=== PATIENT | female | born 1955 | race Caucasian/White ===

== ENCOUNTER 2018-01-20 05:31 | Inpatient (IN) ==
[2018-01-20 06:34] LABS: Baso % (Auto) 0.2 % (0.0-2.0); Eos # (Auto) 0.1 th/mm3 (0.0-0.4); Eos % (Auto) 1.9 % (0.0-4.0); Hematocrit 39.3 % (35.0-46.0); Hemoglobin 13.5 gm/dL (11.6-15.3); Lymph # (Auto) 1.2 th/mm3 (1.0-4.8); Lymph % (Auto) 19.2 % (9.0-44.0); Mean Corpuscular HGB Conc 34.3 % (32.0-36.0); Mean Corpuscular Hemoglobin 31.7 pg (27.0-34.0); Mean Corpuscular Volume 92.3 fL (80.0-100.0); Mean Platelet Volume 8.9 fL (7.0-11.0); Mono # (Auto) 0.4 th/mm3 (0.0-0.9); Mono % (Auto) 6.5 % (0.0-8.0); Neut # (Auto) 4.7 th/mm3 (1.8-7.7); Neut % (Auto) 72.2 % (16.0-70.0); Platelet Count 199 th/mm3 (150-450); Red Blood Count 4.26 mil/mm3 (4.00-5.30); Red Cell Distribution Width 12.5 % (11.6-17.2); White Blood Count 6.5 th/mm3 (4.0-11.0)
--- NOTE | 2018-01-20 06:35 | ED ---
HPI General Chief Complaint: Abdominal Pain Stated Complaint: abd pain Time Seen by Provider: 01/20/18 05:46 Source: patient Mode of arrival: ambulatory Limitations: no limitations History of Present Illness HPI narrative: This 62-year-old woman who presents to the emergency department complaining of ongoing left-sided abdominal pain. Pain is in the upper abdomen , but more on the left side. It has been ongoing for about 4 days or so. She was seen yesterday for the same. She has a history of reported pancreatic cysts. The significance of these is unclear. She had CT imaging yesterday showed no other acute abnormality, states since discharge she has had persistent severe pain that is been uncontrolled despite the tramadol that she was prescribed, does return to the emergency department. She has had nausea. Related Data Home Medications Medication Instructions Recorded Confirmed amlodipine 10 mg PO DAILY 01/19/18 01/20/18 atorvastatin 20 mg PO QPM 01/19/18 01/20/18 clonazepam 0.5 mg PO TID 01/19/18 01/20/18 escitalopram oxalate 20 mg PO DAILY 01/19/18 01/20/18 lisinopril 40 mg PO DAILY 01/19/18 01/20/18 Previous Rx's Medication Instructions Recorded pantoprazole [Protonix] 40 mg PO DAILY #30 tab 01/19/18 tramadol 50 mg PO Q6H PRN #12 tab 01/19/18 Allergies Allergy/AdvReac Type Severity Reaction Status Date / Time adhesive Allergy Severe REDNESS Verified 01/19/18 14:17 hydrocodone Allergy Hallucinati Verified 01/19/18 14:17 ons naproxen [From Aleve] Allergy Anemia Verified 01/19/18 14:17 Review of Systems ROS: all other systems reviewed are negative [facility] Medical History Medical History Anxiety (Acute) Depression (Acute) FH: cholecystectomy (Acute) Hypercholesteremia (Acute) Hypertension (Acute) Surgical History Surgical History H/O hysterectomy with unilateral oophorectomy (Acute) H/O oophorectomy (Acute) History of back surgery (Acute) S/P appendectomy (Acute) Social History Social History Substance History: No History of Abuse Second Hand Smoke Exposure: No Smoking Status: Never smoker How Often Do You Have a Drink Containing Alcohol: Never Recent Travel in [facility] within the Last 8 Weeks: No Recent Out of Country Travel within the Last 8 Weeks: No Immunization History Tetanus Immunization: Unsure Exam Narrative Exam Narrative: GENERAL: 62-year-old woman, moaning, clutching her abdomen, nontoxic. SKIN: Focused skin assessment warm/dry. HEAD: Atraumatic. Normocephalic. EYES: Pupils equal and round. No scleral icterus. No injection or drainage. ENT: No nasal bleeding or discharge. Mucous membranes pink and moist. NECK: Trachea midline. No JVD. CARDIOVASCULAR: Regular rate and rhythm. No murmur appreciated. RESPIRATORY: No accessory muscle use. Clear to auscultation. Breath sounds equal bilaterally. GASTROINTESTINAL: Abdomen soft, mild left-sided tenderness. MUSCULOSKELETAL: No obvious deformities. No clubbing. No cyanosis. No edema. NEUROLOGICAL: Awake and alert. No obvious cranial nerve deficits. Motor grossly within normal limits. Normal speech. PSYCHIATRIC: Appropriate mood and affect; insight and judgment normal. Course Initial Documented Vital Signs Temperature 97.8 F 01/20/18 05:32 Pulse Rate 93 H 01/20/18 05:32 Respiratory Rate 20 01/20/18 05:32 Blood Pressure 173/84 H 01/20/18 05:32 Pulse Oximetry 97 01/20/18 05:32 Last Documented Vital Signs Temperature 97.8 F 01/20/18 05:32 Pulse Rate 72 01/20/18 05:50 Respiratory Rate 16 01/20/18 05:50 Blood Pressure 173/84 H 01/20/18 05:32 Pulse Oximetry 100 01/20/18 05:50 Medical Decision Making [facility] Narrative Medical decision making narrative: 62-year-old woman, known necrotic cyst, here with ongoing abdominal pain, thought to be related to gastritis and chronic NSAID use, worsening pain now reviewed imaging from yesterday, reviewed labs from yesterday, will give oral pain medicines, recheck blood work, reassess. Medical Screen Exam Complete: Yes Emergency Medical Condition: Yes Lab Data Result diagrams: 01/20/18 06:15 01/20/18 06:15 Lab Results 01/20/18 01/20/18 Range/Units 06:15 06:15 WBC 6.5 (4.0-11.0) th/mm3 RBC 4.26 (4.00-5.30) mil/mm3 Hgb 13.5 (11.6-15.3) gm/dL Hct 39.3 (35.0-46.0) % MCV 92.3 (80.0-100.0) fL MCH 31.7 (27.0-34.0) pg MCHC 34.3 (32.0-36.0) % RDW 12.5 (11.6-17.2) % Plt Count 199 (150-450) th/mm3 MPV 8.9 (7.0-11.0) fL Neut % (Auto) 72.2 H (16.0-70.0) % Lymph % (Auto) 19.2 (9.0-44.0) % [place] % (Auto) 6.5 (0.0-8.0) % Eos % (Auto) 1.9 (0.0-4.0) % Baso % (Auto) 0.2 (0.0-2.0) % Neut # (Auto) 4.7 (1.8-7.7) th/mm3 Lymph # (Auto) 1.2 (1.0-4.8) th/mm3 [place] # (Auto) 0.4 (0.0-0.9) th/mm3 Eos # (Auto) 0.1 (0.0-0.4) th/mm3 Baso # (Auto) 0.0 (0.0-0.2) th/mm3 WBC Differential . Differential Comment Auto diff final Sodium 140 (136-145) meq/L Potassium 4.2 (3.5-5.1) meq/L Chloride 106 (98-107) meq/L Carbon Dioxide 26.2 (21.0-32.0) meq/L Anion Gap 8 (5-15) meq/L BUN 16 (7-18) mg/dL Creatinine 0.83 (0.50-1.00) mg/dL Estimated GFR 70 L (>89) mL/min Random Glucose 93 (74-106) mg/dL Calcium 8.9 (8.5-10.1) mg/dL Magnesium 2.2 (1.5-2.5) mg/dL Total Bilirubin 0.5 (0.2-1.0) mg/dL AST 111 H (15-37) U/L ALT 129 H (10-53) U/L Alkaline Phosphatase 172 H (45-117) U/L Total Protein 8.2 D (6.4-8.2) g/dL Albumin 4.1 (3.4-5.0) g/dL Lipase 51 L (73-393) U/L Discharge Plan Discharge Disposition Patient Disposition: Sign Out(ED Internal Use Only) Discharge Condition Condition: Stable Physicians Team ED Provider: David Long Primary Care Provider: Awa Reis Rxs /Orders / Referrals /Forms Prescriptions: No Action atorvastatin 20 mg Tablet 20 mg PO QPM RF: 0 clonazepam 0.5 mg Tablet 0.5 mg PO TID RF: 0 amlodipine 10 mg Tablet 10 mg PO DAILY RF: 0 lisinopril 40 mg Tablet 40 mg PO DAILY RF: 0 escitalopram oxalate 20 mg Tablet 20 mg PO DAILY RF: 0 tramadol 50 mg tablet 50 mg PO Q6H PRN (Reason: pain) Qty: 12 RF: 0 pantoprazole [Protonix] 40 mg tablet,delayed release (DR/EC) 40 mg PO DAILY Qty: 30 RF: 0 Status ED Status: With Doctor
[2018-01-20 07:05] LABS: Alanine Aminotransferase 129 U/L (10-53); Albumin 4.1 g/dL (3.4-5.0); Alkaline Phosphatase 172 U/L (45-117); Anion Gap 8 meq/L (5-15); Aspartate Aminotransferase 111 U/L (15-37); Blood Urea Nitrogen 16 mg/dL (7-18); Calcium 8.9 mg/dL (8.5-10.1); Carbon Dioxide 26.2 meq/L (21.0-32.0); Chloride 106 meq/L (98-107); Glomerular Filtration Rate 70 mL/min (>89); Glucose,Random 93 mg/dL (74-106); Lipase 51 U/L (73-393); Magnesium 2.2 mg/dL (1.5-2.5); Potassium 4.2 meq/L (3.5-5.1); Sodium 140 meq/L (136-145); Total Protein 8.2 g/dL (6.4-8.2)
[2018-01-20] MEDS ORDERED: HYDROmorphone PF Inj 2 MG/ML Vial IV.PUSH ONE (07:17)
[2018-01-20] MEDS ORDERED: Acetaminophen 325 MG Tablet PO PRN (08:29)
[2018-01-20] MEDS ORDERED: Lisinopril 20 MG Tablet PO ONE (08:30)
[2018-01-20] MEDS ORDERED: amLODIPine 10 MG Tablet PO ONE (08:30)
[2018-01-20] MEDS ORDERED: clonazePAM 0.5 MG Tablet PO ONE (08:30)
--- NOTE | 2018-01-20 09:26 | P.HPIM ---
History of Present Illness Primary Care Physician: Awa Reis MD History of Present Illness: Mrs. Aguayo is a 62 y/o female with HTN, Hyperlipidemia, panic seizures/pseudoseizures, and known pancreatic cysts. She presented initially to the ED at [facility] [place] with complaints of abdominal pain that began 2 days prior. This pain is located in the LUQ with radiation around the left ribs to the back. She initially had a few episodes of diarrhea but in the last two days has not moved her bowels. When the pain began she started taking Advil 3-4 tablets about twice per day over the last 2-3 days withtou relief of the pain. There were no reported fever or chills. In the ED on 01/19 her labs were essentially WNL. She had a CT Abd/pelvis with IV contrast which noted moderate size retrocardiac hiatal hernia, multiple cystic structures within the pancreas , s/p cholecystectomy, and mild hepatic steatosis. Pt was discharged to home with a prescription for Protonix and Tramadol. The pain reportedly worsened last night and the tramadol didn't help. She presented back to the ED at [facility] on 01/20/18 again with continued pain and nausea. Her repeat labs on 01/20 noted an elevation in her LFTs with AST 111, ALT 129, AlkPhos 172, and Total Bili remained WNL at 0.5. Pt was given Percocet 10/650 and then Dilaudid IV in the ED. Her pain is currently stable but her reports that after the IV Dilaudid she started having itching all over. Pt is somewhat somnolent at the time of examination in the ED but did provide some information intermittently. She is nauseated and dry heaving during the examination. She states that she has not been passing gas and no BM in the last few days. Pt has had multiple abdominal surgeries previously. Her last abdominal surgery was for right oophorectomy and cyst removal in 07/2017. Of note, the pt had a colonoscopy on 01/05/[address] Moralez which noted diverticulosis in the descending colon, a polyp in the descending colon, and hemorrhoids. She was scheduled for an EUS to further evaluate her known pancreatic cysts. She had a previous CT Abd/pelvis in 07/2017 which noted multiple cysts in the pancreas, which had increased in size slightly compared to previous CT scan in 2013 and felt to possibly be secondary to benign IPMN. Past Medical Hx: HTN Hyperlipidemia Generalized anxiety disorder Panic seizures/Pseudoseizures Depression DDD Hiatal hernia Pancreatic cysts ?IPMN Hx of endometriosis Hx of ovarian cysts Past Surgical Hx: Laparoscopic EDILIA/right salpingo-oophorectomy on 07/25/17 Sai fundoplication with crucoplasty and lap arabella on 11/03/2008 Lumbar spine surgery Hysterectomy Family Hx: Sister with hx of breast cancer Father with hx of dementia Mother with hx of CVA Social Hx: No reported alcohol, tobacco or illicit drug use Pt is and lives locally with her . Diagnosis (1) Abdominal pain: (2) Elevated LFTs: (3) HTN (hypertension): (4) History of pseudoseizure: Medications and Allergies Allergies Allergy/AdvReac Type Severity Reaction Status Date / Time adhesive Allergy Severe REDNESS Verified 01/19/18 14:17 hydrocodone Allergy Hallucinati Verified 01/19/18 14:17 ons naproxen [From Aleve] Allergy Anemia Verified 01/19/18 14:17 Home Medications Medication Instructions Recorded Confirmed Type amlodipine 10 mg PO DAILY 01/19/18 01/20/18 History atorvastatin 20 mg PO QPM 01/19/18 01/20/18 History clonazepam 0.5 mg PO TID 01/19/18 01/20/18 History escitalopram oxalate 20 mg PO DAILY 01/19/18 01/20/18 History lisinopril 40 mg PO DAILY 01/19/18 01/20/18 History Active Medications: Active Medications Acetaminophen (Tylenol) 650 mg PO Q4H PRN PRN Reason: Temp > 100.4 Al Hydroxide/Mg Hydroxide (Milk Of Taniya Sawant) 30 ml PO Q12H PRN PRN Reason: Mild Constipation Atorvastatin Calcium (Lipitor) 20 mg PO DAILY@1800 ARMAND Sodium Chloride (Ns Inj) 1,000 mls @ 100 mls/hr IV.CONT .Q10H ARMAND Ondansetron HCl (Zofran Inj) 4 mg IV.PUSH Q6H PRN PRN Reason: NAUSEA OR VOMITING Last Admin: 01/20/18 08:57 Dose: 4 mg Pantoprazole Sodium (Protonix Inj) 40 mg IV.PUSH Q12H ARMAND Senna/Docusate Sodium (Toña-Colace) 1 tab PO BID ARMAND Sodium Chloride (Ns Flush) 2 ml IV.FLUSH BID ARMAND Sodium Chloride (Ns Flush) 2 ml IV.FLUSH PRN PRN PRN Reason: FLUSH AFTER USING IV ACCESS Physical Exam Vital signs: Last Vital Signs Temp 97.8 F 01/20/18 05:32 Pulse 77 01/20/18 08:58 Resp 18 01/20/18 08:23 BP 200/80 H 01/20/18 08:58 Pulse Ox 99 01/20/18 08:58 Narrative: GENERAL: NAD, lethargic SKIN: Warm and dry. HEENT: Atraumatic. Normocephalic. Pupils equal and round. No scleral icterus. No injection or drainage. No nasal bleeding or discharge. Mucous membranes pink and moist. NECK: Trachea midline. No JVD. CARDIO: Regular rate and rhythm. RESP: No accessory muscle use. Clear to auscultation. Breath sounds equal bilaterally. ABD: Decreased bowel sounds, soft, non-tender, nondistended. EXT: Extremities without clubbing, cyanosis, or edema. No obvious deformities. NEURO: Moves all extremities, difficult to assess due to pts lethargy Results Labs CBC & Chem 7: 01/23/18 06:09 01/23/18 06:09 Caprini VTE Risk Assessment Caprini VTE Risk Assessment: Moderate/High Risk (score >= 2) Caprini Risk Assessment Model: Point Value = 1 Point Value = 2 Point Value = 3 Point Value = 5 Age 41-60 Minor surgery BMI > 25 kg/m2 Swollen legs Varicose veins or History of unexplained or recurrent spontaneous Oral contraceptives or hormone replacement Sepsis (< 1 month) Serious lung disease, including pneumonia (< 1 month) Abnormal pulmonary function Acute myocardial infarction Congestive heart failure (< 1 month) History of inflammatory bowel disease Medical patient at bed rest Age 61-74 Arthroscopic surgery Major open surgery (> 45 min) Laparoscopic surgery (> 45 min) Malignancy Confined to bed (> 72 hours) Immobilizing plaster cast Central venous access Age >= 75 History of VTE Family history of VTE Factor V Leiden Prothrombin [id number] Lupus anticoagulant Anticardiolipin antibodies Elevated serum homocysteine Heparin-induced thrombocytopenia Other congenital or acquired thrombophilia Stroke (< 1 month) Elective arthroplasty Hip, pelvis, or leg fracture Acute spinal cord injury (< 1 month) Prophylaxis Regimen: Total Risk Factor Score Risk Level Prophylaxis Regimen 0-1 Low Early ambulation 2 Moderate Order ONE of the following: *Sequential Compression Device (SCD) *Heparin 5000 units SQ BID 3-4 Higher Order ONE of the following medications: *Heparin 5000 units SQ TID *Enoxaparin/Lovenox 40 mg SQ daily (WT < 150 kg, CrCl > 30 mL/min) *Enoxaparin/Lovenox 30 mg SQ daily (WT < 150 kg, CrCl > 10-29 mL/min) *Enoxaparin/Lovenox 30 mg SQ BID (WT < 150 kg, CrCl > 30 mL/min) AND/OR *Sequential Compression Device (SCD) 5 or more Highest Order ONE of the following medications: *Heparin 5000 units SQ TID (Preferred with Epidurals) *Enoxaparin/Lovenox 40 mg SQ daily (WT < 150 kg, CrCl > 30 mL/min) *Enoxaparin/Lovenox 30 mg SQ daily (WT < 150 kg, CrCl > 10-29 mL/min) *Enoxaparin/Lovenox 30 mg SQ BID (WT < 150 kg, CrCl > 30 mL/min) AND *Sequential Compression Device (SCD) Assessment and Plan Assessment (1) Abdominal pain: Code(s): R10.9 - Unspecified abdominal pain Status: Acute (2) Elevated LFTs: Code(s): R94.5 - Abnormal results of liver function studies Status: Acute (3) HTN (hypertension): Code(s): I10 - Essential (primary) hypertension Status: Chronic (4) History of pseudoseizure: Code(s): Z86.69 - Personal history of other diseases of the nervous system and sense organs Status: Chronic Plan Abdominal pain Nausea/dry heaves Elevated LFTs - Pt is a 62 y/o female with HTN, Hyperlipidemia, panic seizures/pseudoseizures , and known pancreatic cysts. She presented initially to the ED at [facility] with complaints of abdominal pain that began 2 days prior. This pain is located in the LUQ with radiation around the left ribs to the back. She initially had a few episodes of diarrhea but in the last two days has not moved her bowels. When the pain began she started taking Advil 3-4 tablets every 3-4 hours. In the ED on 01/19 her labs were essentially WNL. She had a CT Abd/ pelvis with IV contrast which noted moderate size retrocardiac hiatal hernia, multiple cystic structures within the pancreas , s/p cholecystectomy, and mild hepatic steatosis. Pt was discharged to home with a prescription for Protonix and Tramadol. The pain reportedly worsened last night and the tramadol didn't help. She presented back to the ED at [facility] on 01/20/18 again with continued pain and nausea. - Her repeat labs on 01/20 noted an elevation in her LFTs with AST 111, ALT 129 , AlkPhos 172, and Total Bili remained WNL at 0.5. - Pt had a colonoscopy on 01/05/[address] Moralez which noted diverticulosis in the descending colon, a polyp in the descending colon, and hemorrhoids. She was scheduled for an EUS to further evaluate her known pancreatic cysts. She had a previous CT Abd/pelvis in 07/2017 which noted multiple cysts in the pancreas, which had increased in size slightly compared to previous CT scan in 2012 and felt to possibly be secondary to benign IPMN. - In the setting of her acutely elevated LFTs we will evaluate with MRCP - Consult GI - Keep pt NPO for now - IVF - Pain control with PO Percocet for now as pt seems to have had a reaction to the IV Dilaudid and previously given IV Morphine which she states did not help. - Zofran PRN - She states that she has not been passing gas and no BM in the last few days. Pt with a lot of gas noted in the LUQ on c programmer film from CT scan - Give Simethicone 125mg TID and Reglan - Start Protonix 40mg IV BID - Monitor clinical status - Repeat labs in AM - KUB in AM - Supportive care - Further recommendations based on the results of the MRCP and further workup. HTN - Cont. home meds - Pt did not take her home meds last night so she will be given them this morning - Clonidine PRN Pseudoseizures/Panic seizures - Clonazepam PRN Attending Attestation Patient examined. Assessment and plan formulated with Rena Montgomery PA-C. I agree with the above. left side abdomen pain x 3 days had some loose stool and dry heaves s/p ct a/p and mrcp. mild elevated of ast/alt/alkphos hx nissn for hiatal hernia and s/p arabella recent colonoscopy on 01/05 chronic pancreatic cysts Pain appears related to large gaseous collection LUQ and also there is some evidence of increased stool rectum will try reglan/lactulose/dulcolax x 1/simethicone repeat LFT in AM...?etiology...?medication related. GI consulted. Pt was scheduled for EUS to eval pancreas but pt cancelled.
[2018-01-20] MEDS: Senna/Docusate Sodium 8.6/50 MG Tablet PO SCH ×2 (11:07→21:53)
[2018-01-20] MEDS: Pantoprazole Inj 40 MG Vial IV.PUSH SCH ×2 (11:14→21:53)
[2018-01-20] MEDS: Sod Chloride 0.9% Inj 1,000 ML IV.CONT SCH ×2 (11:14→20:05)
--- NOTE | 2018-01-20 11:14 | MR ---
EXAM DATE: 01/20/2018 11:01 AM EST AGE/SEX: 62 years / Female INDICATIONS: Obstruction. CLINICAL DATA: This is the patient's initial encounter. Patient reports that signs and symptoms have been present for 1 day and indicates a pain score of 6/10. MEDICAL/SURGICAL HISTORY: Hypertension. Hypercholesterolemia. Cholecystectomy. Hysterectomy. Appendectomy. COMPARISON: [facility] [place], CT ABDOMEN & PELVIS W CONTRAST, 01/19/2018. . TECHNIQUE: Multiplanar, multisequence images of the abdomen were obtained without contrast including dedicated cholangiographic images. FINDINGS: Liver: The liver is homogeneous and normal in signal intensity with no focal defects. Intrahepatic Bile Ducts: Minimal prominence of the intrahepatic biliary ducts. Common Bile Duct: The common bile duct is enlarged measuring 1 cm in diameter. No evidence of intral uminal stones. Gallbladder: Surgically absent. Pancreas: The pancreas demonstrates multiple well-circumscribed simple appearing T2 bright cysts. Th ere is a dominant cyst identified within the body of the pancreas measuring 1.5 cm which appears to b e contiguous with the nondilated main pancreatic duct. No evidence of solid component. CONCLUSION: 1. There is dilation of the common bile duct to the level of the pancreatic head. No obstructing les ion is seen at the level of the pancreatic head. There is gradual tapering which may reflect a benign stenosis. 2. Multiple pancreatic simple appearing cysts with a dominant cyst identified within the body of the pancreas. This dominant cyst demonstrates continuity with the nondilated main pancreatic duct consis tent with a side branch IPMN. The smaller cysts do not clearly demonstrate continuity with the duct. There are no obstructing stones seen and no gating features within the pancreatic cysts. Electronically signed by: Abby Jeffers MD Board Certified Radiologist 01/20/2018 11:12 AM Jaquelin GRANGER
[2018-01-20] MEDS: Simethicone 125 MG Chew Tablet PO SCH ×2 (14:00→19:13)
[2018-01-20] MEDS: clonazePAM 0.5 MG Tablet PO PRN (15:33)
[2018-01-20] MEDS ORDERED: Simethicone 125 MG Chew Tablet PO SCH (18:00)
--- NOTE | 2018-01-20 19:31 | P.CONGI ---
History of Present Illness Consult date: 01/20/18 Consult reason: Abdominal pain Nausea Elevated LFTs Chief complaint: abd pain History of Present Illness: This patient is a 62-year-old female with past medical history significant for hypertension, hyperlipidemia, seizures pseudoseizures,/pancreatic cysts, depression, general anxiety disorder, hiatal hernia, endometriosis and ovarian cysts. Past surgical history significant for hysterectomy with oophorectomy, Sai fundoplication, lap cholecystectomy, lumbar spine surgery and hysterectomy. Patient presented to [facility] on 01/19/2018 with complaints of abdominal pain left upper quadrant onset 2 days prior. Patient describes pain as a dull ache and states that it radiates around to the left upper back area. Patient denies any fever or chills. CT abdomen and pelvis with IV contrast reveal retrocardiac hiatal hernia with multiple cystic structures within the pancreas and mild hepatic steatosis. Patient presented again to [facility] ED on 01/20/2018 with continued pain left upper quadrant and nausea. Labs reveal elevated liver enzymes. Patient denies vomiting. Of note, patient had colonoscopy done on which noted diverticulosis in the descending colon, polyp in the descending colon and hemorrhoids. Patient states she plans to follow-up with advanced GI for an EUS to evaluate pancreatic cysts. Upon consultation, patient reports 2 days of loose light brown colored stools prior to admission. Patient denies any noted bleeding. Our service has been consulted to evaluate patient for left upper quadrant abdominal pain with elevated LFTs. <Ivis Ingram - Last Filed: 01/20/18 19:14> Review of Systems All other systems reviewed negative except as stated in HPI <Ivis Ingram - Last Filed: 01/20/18 19:14> PMFSH - History History Provided By: Patient - Medical History Medical History: Medical History (Last Reviewed 01/20/18 @ 06:37 by David Long MD) Anxiety Depression FH: cholecystectomy Hypercholesteremia Hypertension - Surgical History Surgical History: Surgical History (Last Reviewed 01/20/18 @ 06:37 by David Long MD) H/O hysterectomy with unilateral oophorectomy H/O oophorectomy History of back surgery S/P appendectomy - Tobacco History Second Hand Smoke Exposure: No Smoking Status: Never smoker - Alcohol History How Often Do You Have a Drink Containing Alcohol: Never - Substance Use History Substance History: No History of Abuse - Travel History Recent Travel in the [place] Within the Last 8 Weeks: No Recent Travel Out of the Country Within the Last 8 Weeks: No - Immunization History Tetanus Immunization: Unsure <Ivis Ingram - Last Filed: 01/20/18 19:14> - Medical History Medical History: Medical History (Last Reviewed 01/20/18 @ 06:37 by David Long MD) Anxiety Depression FH: cholecystectomy Hypercholesteremia Hypertension - Surgical History Surgical History: Surgical History (Last Reviewed 01/20/18 @ 06:37 by David Long MD) H/O hysterectomy with unilateral oophorectomy H/O oophorectomy History of back surgery S/P appendectomy <Gio Mendez - Last Filed: 01/21/18 08:39> Medications and Allergies Active Medications: Active Medications Acetaminophen (Tylenol) 650 mg PO Q4H PRN PRN Reason: Temp > 100.4 Al Hydroxide/Mg Hydroxide (Milk Of ElectroJetjuan josé Liq) 30 ml PO Q12H PRN PRN Reason: Mild Constipation Amlodipine Besylate (Norvasc) 10 mg PO DAILY [facility] Atorvastatin Calcium (Lipitor) 20 mg PO DAILY@1800 [facility] Clonazepam (Klonopin) 0.5 mg PO TID PRN PRN Reason: anxiety/agitation Last Admin: 01/20/18 15:33 Dose: 0.5 mg Clonidine HCl (Catapres) 0.1 mg PO Q6H PRN PRN Reason: SBP>180, DBP>100, HR>65 Escitalopram Oxalate (Lexapro) 20 mg PO DAILY [facility] Last Admin: 01/20/18 11:07 Dose: Not Given Sodium Chloride (Ns Inj) 1,000 mls @ 100 mls/hr IV.CONT .Q10H [facility] Last Admin: 01/20/18 11:14 Dose: 100 mls/hr Lisinopril (Prinivil) 40 mg PO DAILY [facility] Metoclopramide HCl (Reglan Inj) 5 mg IV.PUSH Q8H [facility]; Protocol Last Admin: 01/20/18 15:32 Dose: 5 mg Ondansetron HCl (Zofran Inj) 4 mg IV.PUSH Q4H PRN PRN Reason: NAUSEA OR VOMITING Oxycodone/Acetaminophen (Percocet 5/325 Mg) 1 tab PO Q4H PRN PRN Reason: pain 1-5 Last Admin: 01/20/18 15:39 Dose: 1 tab Oxycodone/Acetaminophen (Percocet 5/325 Mg) 2 tab PO Q4H PRN PRN Reason: PAIN 6-10;IF UNABLE TO TAKE PO Pantoprazole Sodium (Protonix Inj) 40 mg IV.PUSH Q12H [facility] Last Admin: 01/20/18 11:14 Dose: 40 mg Senna/Docusate Sodium (Toña-Colace) 1 tab PO BID [facility] Last Admin: 01/20/18 11:07 Dose: Not Given Simethicone (Phazyme Chew) 125 mg PO TID [facility] Last Admin: 01/20/18 14:00 Dose: Not Given Sodium Chloride (Ns Flush) 2 ml IV.FLUSH BID [facility] Last Admin: 01/20/18 09:46 Dose: Not Given Sodium Chloride (Ns Flush) 2 ml IV.FLUSH PRN PRN PRN Reason: FLUSH AFTER USING IV ACCESS <Ivis Ingram - Last Filed: 01/20/18 19:14> Active Medications: Active Medications Acetaminophen (Tylenol) 650 mg PO Q4H PRN PRN Reason: Temp > 100.4 Al Hydroxide/Mg Hydroxide (Milk Of Magnjuan josé Liq) 30 ml PO Q12H PRN PRN Reason: Mild Constipation Amlodipine Besylate (Norvasc) 10 mg PO DAILY [facility] Atorvastatin Calcium (Lipitor) 20 mg PO DAILY@1800 [facility] Last Admin: 01/20/18 19:13 Dose: 20 mg Clonazepam (Klonopin) 0.5 mg PO TID PRN PRN Reason: anxiety/agitation Last Admin: 01/20/18 15:33 Dose: 0.5 mg Clonidine HCl (Catapres) 0.1 mg PO Q6H PRN PRN Reason: SBP>180, DBP>100, HR>65 Escitalopram Oxalate (Lexapro) 20 mg PO DAILY [facility] Last Admin: 01/20/18 11:07 Dose: Not Given Sodium Chloride (Ns Inj) 1,000 mls @ 100 mls/hr IV.CONT .Q10H [facility] Last Admin: 01/21/18 05:00 Dose: Not Given Lactated Ringer's (Lr 1000 Ml Inj) 1,000 mls @ 30 mls/hr IV.SIG .Q24H [facility] Stop: 01/22/18 04:44 Last Admin: 01/21/18 05:39 Dose: 30 mls/hr Sodium Chloride (Ns Inj) 500 mls @ 30 mls/hr IV.SIG .Q10H [facility] Last Admin: 01/21/18 05:34 Dose: Not Given Lisinopril (Prinivil) 40 mg PO DAILY [facility] Metoclopramide HCl (Reglan Inj) 5 mg IV.PUSH Q8H [facility]; Protocol Last Admin: 01/21/18 05:37 Dose: 5 mg Ondansetron HCl (Zofran Inj) 4 mg IV.PUSH Q4H PRN PRN Reason: NAUSEA OR VOMITING Oxycodone/Acetaminophen (Percocet 5/325 Mg) 1 tab PO Q4H PRN PRN Reason: pain 1-5 Last Admin: 01/20/18 23:21 Dose: 1 tab Oxycodone/Acetaminophen (Percocet 5/325 Mg) 2 tab PO Q4H PRN PRN Reason: PAIN 6-10;IF UNABLE TO TAKE PO Last Admin: 01/21/18 07:53 Dose: 2 tab Pantoprazole Sodium (Protonix Inj) 40 mg IV.PUSH Q12H [facility] Last Admin: 01/20/18 21:53 Dose: 40 mg Senna/Docusate Sodium (Toña-Colace) 1 tab PO BID [facility] Last Admin: 01/20/18 21:53 Dose: 1 tab Simethicone (Phazyme Chew) 125 mg PO TID [facility] Last Admin: 01/20/18 19:13 Dose: 125 mg Sodium Chloride (Ns Flush) 2 ml IV.FLUSH BID [facility] Last Admin: 01/20/18 21:57 Dose: 2 ml Sodium Chloride (Ns Flush) 2 ml IV.FLUSH PRN PRN PRN Reason: FLUSH AFTER USING IV ACCESS <Gio Mendez - Last Filed: 01/21/18 08:39> Allergies Allergy/AdvReac Type Severity Reaction Status Date / Time adhesive Allergy Severe REDNESS Verified 01/19/18 14:17 hydrocodone Allergy Hallucinati Verified 01/19/18 14:17 ons naproxen [From Aleve] Allergy Anemia Verified 01/19/18 14:17 Home Medications Medication Instructions Recorded Confirmed Type amlodipine 10 mg PO DAILY 01/19/18 01/20/18 History atorvastatin 20 mg PO QPM 01/19/18 01/20/18 History clonazepam 0.5 mg PO TID 01/19/18 01/20/18 History escitalopram oxalate 20 mg PO DAILY 01/19/18 01/20/18 History lisinopril 40 mg PO DAILY 01/19/18 01/20/18 History Exam Vital signs: Vital Signs 01/20/18 05:32 01/20/18 05:50 01/20/18 07:15 Temperature 97.8 F Pulse Rate 93 H 72 Respiratory Rate 20 16 18 Blood Pressure 173/84 H 173/138 H Pulse Oximetry 97 100 01/20/18 08:23 01/20/18 08:58 01/20/18 09:42 Temperature Pulse Rate 77 66 Respiratory Rate 18 18 Blood Pressure 200/80 H 156/71 H Pulse Oximetry 99 01/20/18 12:00 01/20/18 16:00 Temperature 97.8 F 97.9 F Pulse Rate 62 71 Respiratory Rate 19 19 Blood Pressure 142/69 H 143/67 H Pulse Oximetry 95 96 Intake & Output 01/20/18 01/20/18 01/21/18 06:59 18:59 06:59 Weight 74.843 kg Other: Date of Last Bowel Movement 01/19/18 - Constitutional mild distress, cooperative - Routine Respiratory Exam Present: CTA bilaterally. Absent: accessory muscle use - Routine Cardiovascular Exam Present: RRR - Routine Abdominal Exam Present: soft, normoactive bowel sounds, tenderness. Absent: distended Comments: Tenderness left of the mid epigastric area on palpation during exam - Routine Exam Comments: No CVA tenderness - Routine Extremities Exam Present: pulses intact. Absent: edema - Routine Skin Exam Present: dry, warm. Absent: pallor, jaundice - Routine Neurological Exam Present: alert, oriented X3 <Ingram,Ivis - Last Filed: 01/20/18 19:14> Vital signs: Vital Signs 01/20/18 08:58 01/20/18 09:42 01/20/18 12:00 Temperature 97.8 F Pulse Rate 77 66 62 Respiratory Rate 18 19 Blood Pressure 200/80 H 156/71 H 142/69 H Pulse Oximetry 99 95 01/20/18 16:00 01/20/18 20:00 01/21/18 00:00 Temperature 97.9 F 97.9 F 98.2 F Pulse Rate 71 71 60 Respiratory Rate 19 18 17 Blood Pressure 143/67 H 177/86 H 121/63 Pulse Oximetry 96 95 94 L 01/21/18 03:35 01/21/18 08:00 Temperature 99.0 F 98.6 F Pulse Rate 75 76 Respiratory Rate 17 18 Blood Pressure 140/65 145/67 H Pulse Oximetry 96 92 L Intake & Output 01/20/18 01/21/18 01/21/18 18:59 06:59 18:59 Weight 74.8 kg 78.8 kg Other: # Voids 3 Date of Last Bowel Movement 01/19/18 01/19/18 Weight On Admission 74.8 kg <Gio Mendez - Last Filed: 01/21/18 08:39> Results - Labs CBC & Chem 7: 01/20/18 06:15 01/20/18 06:15 Labs: Laboratory Results - last 24 hr 01/20/18 01/20/18 06:15 06:15 WBC 6.5 RBC 4.26 Hgb 13.5 Hct 39.3 MCV 92.3 MCH 31.7 MCHC 34.3 RDW 12.5 Plt Count 199 MPV 8.9 Neut % (Auto) 72.2 H Lymph % (Auto) 19.2 [place] % (Auto) 6.5 Eos % (Auto) 1.9 Baso % (Auto) 0.2 Neut # (Auto) 4.7 Lymph # (Auto) 1.2 [place] # (Auto) 0.4 Eos # (Auto) 0.1 Baso # (Auto) 0.0 WBC Differential . Differential Comment Auto diff final Sodium 140 Potassium 4.2 Chloride 106 Carbon Dioxide 26.2 Anion Gap 8 BUN 16 Creatinine 0.83 Estimated GFR 70 L Random Glucose 93 Calcium 8.9 Magnesium 2.2 Total Bilirubin 0.5 AST 111 H ALT 129 H Alkaline Phosphatase 172 H Total Protein 8.2 D Albumin 4.1 Lipase 51 L - Imaging Impressions Cholangiopancreatography MRI 01/20/18 00:00 CONCLUSION: 1. There is dilation of the common bile duct to the level of the pancreatic head. No obstructing lesion is seen at the level of the pancreatic head. There is gradual tapering which may reflect a benign stenosis. 2. Multiple pancreatic simple appearing cysts with a dominant cyst identified within the body of the pancreas. This dominant cyst demonstrates continuity with the nondilated main pancreatic duct consistent with a side branch IPMN. The smaller cysts do not clearly demonstrate continuity with the duct. There are no obstructing stones seen and no gating features within the pancreatic cysts. <Ivis Ingram - Last Filed: 01/20/18 19:14> - Labs CBC & Chem 7: 01/21/18 06:54 01/21/18 06:54 Labs: Laboratory Results - last 24 hr 01/21/18 01/21/18 06:54 06:54 WBC 7.5 RBC 3.72 L Hgb 12.0 Hct 34.4 L MCV 92.3 MCH 32.1 MCHC 34.8 RDW 12.6 Plt Count 164 MPV 8.7 Neut % (Auto) 71.8 H Lymph % (Auto) 18.1 [place] % (Auto) 5.8 Eos % (Auto) 4.0 Baso % (Auto) 0.3 Neut # (Auto) 5.4 Lymph # (Auto) 1.4 [place] # (Auto) 0.4 Eos # (Auto) 0.3 Baso # (Auto) 0.0 WBC Differential . Differential Comment Auto diff final Sodium 141 Potassium 3.5 Chloride 108 H Carbon Dioxide 28.8 Anion Gap 4 L BUN 15 Creatinine 0.76 Estimated GFR 77 L Random Glucose 82 Calcium 7.8 L D Total Bilirubin 0.4 AST 38 H ALT 68 H Alkaline Phosphatase 123 H Total Protein 6.4 D Albumin 3.3 L D - Imaging Impressions Cholangiopancreatography MRI 01/20/18 00:00 CONCLUSION: 1. There is dilation of the common bile duct to the level of the pancreatic head. No obstructing lesion is seen at the level of the pancreatic head. There is gradual tapering which may reflect a benign stenosis. 2. Multiple pancreatic simple appearing cysts with a dominant cyst identified within the body of the pancreas. This dominant cyst demonstrates continuity with the nondilated main pancreatic duct consistent with a side branch IPMN. The smaller cysts do not clearly demonstrate continuity with the duct. There are no obstructing stones seen and no gating features within the pancreatic cysts. Abdomen X-Ray 01/21/18 00:00 CONCLUSION: New appearance of air dilated sigmoid colon centered within the mid pelvis which may represent interval development of a sigmoid volvulus. <Gio Mendez - Last Filed: 01/21/18 08:39> Assessment and Plan (1) Elevated LFTs Status: Acute Code(s): R94.5 - Abnormal results of liver function studies (2) Abdominal pain Status: Acute Code(s): R10.9 - Unspecified abdominal pain - Plan This patient is a 62-year-old female with past medical history significant for hypertension, hyperlipidemia, seizures pseudoseizures,/pancreatic cysts, depression, general anxiety disorder, hiatal hernia, endometriosis and ovarian cysts. Past surgical history significant for hysterectomy with oophorectomy, Sai fundoplication, lap cholecystectomy, lumbar spine surgery and hysterectomy. Patient presented to [facility] on 01/19/2018 with complaints of abdominal pain left upper quadrant onset 2 days prior. Patient describes pain as a dull ache and states that it radiates around to the left upper back area. Patient denies any fever or chills. CT abdomen and pelvis with IV contrast reveal retrocardiac hiatal hernia with multiple cystic structures within the pancreas and mild hepatic steatosis. Patient presented again to [facility] ED on 01/20/2018 with continued pain left upper quadrant and nausea. Labs reveal elevated liver enzymes. Patient denies vomiting. Of note, patient had colonoscopy done on which noted diverticulosis in the descending colon, polyp in the descending colon and hemorrhoids. Patient states she plans to follow-up with advanced GI for an EUS to evaluate pancreatic cysts. Upon consultation, patient reports 2 days of loose light brown colored stools prior to admission. Patient denies any noted bleeding. Our service has been consulted to evaluate patient for left upper quadrant abdominal pain with elevated LFTs. Left upper quadrant pain Elevated LFTs Patient presents with 2-day history of left upper quadrant pain that radiates to left upper back. Denies any fever or chills. Post Sai fundoplication 2008. 01/20/2018 MRCP revealed the following-- 1.There is dilation of the common bile duct to the level of the pancreatic head. No obstructing lesion is seen at the level of the pancreatic head. There is gradual tapering which may reflect a benign stenosis. 2.Multiple pancreatic simple appearing cysts with a dominant cyst identified within the body of the pancreas. This dominant cyst demonstrates continuity with the nondilated main pancreatic duct consistent with a side branch IPM. The smaller cysts do not clearly demonstrate continuity with the duct. There are no obstructing stones seen and no gating features within the pancreatic cysts. 01/19/2018 CT abdomen and pelvis-- 1. Moderate size retrocardiac hiatal hernia. 2. Multiple cystic structures within the pancreas. These are nonspecific. Since these are incidental findings further evaluation with an outpatient high- resolution pancreatic protocol CT would be recommended. 3. Status post cholecystectomy. 4. Mild hepatic steatosis. -01/19/2018: Total bilirubin 0.3 AST 15 ALT 20 alk phos 113 -01/20/2018: WBC 6.5 hemoglobin 13.5 hematocrit 39.3 platelet count 199 INR 0.9 total bilirubin 0.5 AST 111 ALT 129 alk phos 172 lipase 51 Plan -Clear liquid diet -N.p.o. after midnight -General surgery consulted-hiatal hernia, post Sai fundoplication -Monitor labs-CMP in a.m. -Analgesics and antiemetics as per attending -Pantoprazole 40 mg IV every 12 -Continue IV hydration -Supportive care -GI will sign off, please notify for any further assistance This patient has been seen by myself and Dr. Mendez and this note is written on his behalf - Attending Attestation Dr. Mendez <Ivis Ingram - Last Filed: 01/20/18 19:14> (1) Elevated LFTs Status: Acute Code(s): R94.5 - Abnormal results of liver function studies (2) Abdominal pain Status: Acute Code(s): R10.9 - Unspecified abdominal pain - Attending Attestation The patient was seen and examined. Agree with above note. <Gio Mendez - Last Filed: 01/21/18 08:39>
[2018-01-21] MEDS ORDERED: Chlorhexidine Gluconate 2% 1 Pack (2 Cloths) TOPICAL ONE (04:44)
[2018-01-21] MEDS: Sod Chloride 0.9% Inj 1,000 ML IV.CONT SCH (05:00)
[2018-01-21] MEDS ORDERED: Sodium Chlor 0.9% Inj 500 ML IV.SIG SCH (05:00)
[2018-01-21 07:25] LABS: Baso % (Auto) 0.3 % (0.0-2.0); Eos # (Auto) 0.3 th/mm3 (0.0-0.4); Hematocrit 34.4 % (35.0-46.0); Lymph # (Auto) 1.4 th/mm3 (1.0-4.8); Lymph % (Auto) 18.1 % (9.0-44.0); Mean Corpuscular HGB Conc 34.8 % (32.0-36.0); Mean Corpuscular Hemoglobin 32.1 pg (27.0-34.0); Mean Corpuscular Volume 92.3 fL (80.0-100.0); Mean Platelet Volume 8.7 fL (7.0-11.0); Mono # (Auto) 0.4 th/mm3 (0.0-0.9); Mono % (Auto) 5.8 % (0.0-8.0); Neut # (Auto) 5.4 th/mm3 (1.8-7.7); Neut % (Auto) 71.8 % (16.0-70.0); Platelet Count 164 th/mm3 (150-450); Red Blood Count 3.72 mil/mm3 (4.00-5.30); Red Cell Distribution Width 12.6 % (11.6-17.2); White Blood Count 7.5 th/mm3 (4.0-11.0)
[2018-01-21 07:53] LABS: Alanine Aminotransferase 68 U/L (10-53); Albumin 3.3 g/dL (3.4-5.0); Alkaline Phosphatase 123 U/L (45-117); Anion Gap 4 meq/L (5-15); Aspartate Aminotransferase 38 U/L (15-37); Blood Urea Nitrogen 15 mg/dL (7-18); Calcium 7.8 mg/dL (8.5-10.1); Carbon Dioxide 28.8 meq/L (21.0-32.0); Chloride 108 meq/L (98-107); Glomerular Filtration Rate 77 mL/min (>89); Glucose,Random 82 mg/dL (74-106); Potassium 3.5 meq/L (3.5-5.1); Sodium 141 meq/L (136-145); Total Protein 6.4 g/dL (6.4-8.2)
--- NOTE | 2018-01-21 08:38 | XR ---
EXAM DATE: 01/21/2018 8:34 AM EST AGE/SEX: 62 years / Female INDICATIONS: Possible ileus. CLINICAL DATA: This is the patient's initial encounter. Patient reports that signs and symptoms have been present for 4 - 6 days and indicates a pain score of 7/10. MEDICAL/SURGICAL HISTORY: . Hypertension. Cholecystectomy. Appendectomy. Hysterectomy. Oophorec nery. . [place] [facility] [place]AST[place] 01/[place]/2018. . FINDINGS: No evidence of bowel obstruction. There is air dilated sigmoid colon centered within the midline pel vis which may represent a sigmoid volvulus. Large amount of stool identified within the large bowel. CONCLUSION: New appearance of air dilated sigmoid colon centered within the mid pelvis which may represent interv al development of a sigmoid volvulus. Electronically signed by: Abby Jeffers MD Board Certified Radiologist 01/21/2018 8:36 AM FAVIAN Castillo
[2018-01-21] MEDS ORDERED: Magnesium Citrate Liq 300 ML Bottle PO ONE (10:10)
[2018-01-21] MEDS: Lisinopril 20 MG Tablet PO SCH (10:19)
[2018-01-21] MEDS: Simethicone 125 MG Chew Tablet PO SCH ×3 (10:19→17:28)
--- NOTE | 2018-01-21 10:20 | P.PNIM ---
Subjective Interval history: Pt still having abd pain but is passing more gas No BM yet No nausea/vomiting. Physical Exam Vital signs: Last Vital Signs Temp 98.6 F 01/21/18 08:00 Pulse 76 01/21/18 08:00 Resp 18 01/21/18 08:00 BP 145/67 H 01/21/18 08:00 Pulse Ox 92 L 01/21/18 08:00 Narrative: GENERAL: NAD, AAOx3 CARDIO: Regular rate and rhythm. RESP: CTA bilaterally. ABD: +BS, soft, LUQ tenderness, nondistended. No guarding or rebound EXT: No edema. No obvious deformities. Results Labs CBC & Chem 7: 01/23/18 06:09 01/23/18 06:09 Imaging Cholangiopancreatography MRI 01/20/18 00:00 CONCLUSION: 1. There is dilation of the common bile duct to the level of the pancreatic head. No obstructing lesion is seen at the level of the pancreatic head. There is gradual tapering which may reflect a benign stenosis. 2. Multiple pancreatic simple appearing cysts with a dominant cyst identified within the body of the pancreas. This dominant cyst demonstrates continuity with the nondilated main pancreatic duct consistent with a side branch IPMN. The smaller cysts do not clearly demonstrate continuity with the duct. There are no obstructing stones seen and no gating features within the pancreatic cysts. Abdomen X-Ray 01/21/18 00:00 CONCLUSION: New appearance of air dilated sigmoid colon centered within the mid pelvis which may represent interval development of a sigmoid volvulus. Assessment and Plan Assessment (1) Elevated LFTs: Code(s): R94.5 - Abnormal results of liver function studies Status: Acute (2) Abdominal pain: Code(s): R10.9 - Unspecified abdominal pain Status: Acute Plan Constipation Abdominal pain Nausea/dry heaves Elevated LFTs, improving. - Pt is a 62 y/o female with HTN, Hyperlipidemia, panic seizures/pseudoseizures , and known pancreatic cysts. She presented initially to the ED at [facility] [place] on with complaints of abdominal pain that began 2 days prior. This pain is located in the LUQ with radiation around the left ribs to the back. She initially had a few episodes of diarrhea but in the last two days has not moved her bowels. When the pain began she started taking Advil 3-4 tablets every 3-4 hours. In the ED on 01/19 her labs were essentially WNL. She had a CT Abd/ pelvis with IV contrast which noted moderate size retrocardiac hiatal hernia, multiple cystic structures within the pancreas , s/p cholecystectomy, and mild hepatic steatosis. Pt was discharged to home with a prescription for Protonix and Tramadol. The pain reportedly worsened last night and the tramadol didn't help. She presented back to the ED at [facility] [place] on 01/20/18 again with continued pain and nausea. - Her repeat labs on 01/20 noted an elevation in her LFTs with AST 111, ALT 129 , AlkPhos 172, and Total Bili remained WNL at 0.5. - Pt had a colonoscopy on 01/05/[address] Moralez which noted diverticulosis in the descending colon, a polyp in the descending colon, and hemorrhoids. She was scheduled for an EUS to further evaluate her known pancreatic cysts. She had a previous CT Abd/pelvis in 07/2017 which noted multiple cysts in the pancreas, which had increased in size slightly compared to previous CT scan in 2012 and felt to possibly be secondary to benign IPMN. - In the setting of her acutely elevated LFTs evaluated with MRCP - MRCP (01/20/18): 1. There is dilation of the common bile duct to the level of the pancreatic head. No obstructing lesion is seen at the level of the pancreatic head. There is gradual tapering which may reflect a benign stenosis. 2. Multiple pancreatic simple appearing cysts with a dominant cyst identified within the body of the pancreas. This dominant cyst demonstrates continuity with the nondilated main pancreatic duct consistent with a side branch IPMN. The smaller cysts do not clearly demonstrate continuity with the duct. There are no obstructing stones seen and no gating features within the pancreatic cysts. - Pts repeat LFTs are improving on 01/21. - Yesterday she had reported that she has not been passing gas and no BM in the last few days. Pt with a lot of gas noted in the LUQ on program aide film from CT scan - Pt was given Simethicone 125mg TID and Reglan 5mg Q8H IV, Dulcolax and Lactulose x 2 doses on 01/20. - On 01/21 pt has been passing more gas but no BM yet. - KUB (01/21/18) with continued gas distension and large amount of stool throughout the colon. - Pt with more bowel sounds today. - Appreciate Consult from GI. They felt that her hiatal hernia may be contributing and consulted General Surgery. Discussed the case with Dr. Gu on 01/21 and he felt that it was unlikely that her pain was related to the hiatal hernia and recommending feeding the pt as she was made NPO after MN last night. Will advance to full liquid diet for now and will continue efforts to relieve constipation and gas today. Should the pt not tolerate oral intake or clinically worsen then we will reconsult [facility]. Otherwise pt was requested to followup with [facility] outpt for evaluation of the hiatal hernia. - Encourage ambulation - Discussed minimizing narcotics - Zofran PRN - Protonix 40mg IV BID - Monitor clinical status - Repeat labs in AM - KUB in AM - Supportive care HTN - Improved on home meds - Clonidine PRN Pseudoseizures/Panic seizures - Clonazepam PRN Progress Note: Quality VTE Deep Vein Thrombosis/Pulmonary Embolism Present on Admission: No _ (1) Abdominal pain Qualifiers: Abdominal location:
[2018-01-21] MEDS: Senna/Docusate Sodium 8.6/50 MG Tablet PO SCH ×2 (10:25→21:25)
[2018-01-21] MEDS: amLODIPine 10 MG Tablet PO SCH (10:25)
[2018-01-21] MEDS: Pantoprazole Inj 40 MG Vial IV.PUSH SCH ×2 (10:29→21:23)
[2018-01-21] MEDS: clonazePAM 0.5 MG Tablet PO PRN ×2 (10:41→17:31)
--- NOTE | 2018-01-21 11:49 | ECG ---
Date Performed: 01/21/2018 Time Performed: 05:27:38 PTAGE: 62 years EKG: Sinus rhythm . Normal ECG Since the PREVIOUS TRACING , no significant change noted PREVIOUS TRACIN01/19/2018 15.05 DOCTOR: Maikol Szymanski Interpretating Date/Time 01/21/2018 11:48:07
[2018-01-22] MEDS: Sod Chloride 0.9% Inj 1,000 ML IV.CONT SCH ×3 (00:30→18:30)
[2018-01-22 07:04] LABS: Baso % (Auto) 0.5 % (0.0-2.0); Eos # (Auto) 0.2 th/mm3 (0.0-0.4); Eos % (Auto) 4.7 % (0.0-4.0); Hematocrit 35.5 % (35.0-46.0); Hemoglobin 11.9 gm/dL (11.6-15.3); Lymph # (Auto) 1.6 th/mm3 (1.0-4.8); Lymph % (Auto) 30.5 % (9.0-44.0); Mean Corpuscular HGB Conc 33.5 % (32.0-36.0); Mean Corpuscular Hemoglobin 31.1 pg (27.0-34.0); Mean Corpuscular Volume 92.9 fL (80.0-100.0); Mean Platelet Volume 8.6 fL (7.0-11.0); Mono # (Auto) 0.5 th/mm3 (0.0-0.9); Mono % (Auto) 9.2 % (0.0-8.0); Neut # (Auto) 2.8 th/mm3 (1.8-7.7); Neut % (Auto) 55.1 % (16.0-70.0); Platelet Count 173 th/mm3 (150-450); Red Blood Count 3.82 mil/mm3 (4.00-5.30); Red Cell Distribution Width 12.3 % (11.6-17.2); White Blood Count 5.1 th/mm3 (4.0-11.0)
[2018-01-22 07:15] LABS: Anion Gap 2 meq/L (5-15); Blood Urea Nitrogen 9 mg/dL (7-18); Calcium 7.9 mg/dL (8.5-10.1); Carbon Dioxide 34.2 meq/L (21.0-32.0); Chloride 106 meq/L (98-107); Glomerular Filtration Rate Greater Than 89 mL/min (>89); Glucose,Random 91 mg/dL (74-106); Sodium 142 meq/L (136-145)
[2018-01-22] MEDS: clonazePAM 0.5 MG Tablet PO PRN (09:12)
[2018-01-22] MEDS: Pantoprazole Inj 40 MG Vial IV.PUSH SCH (09:13)
[2018-01-22] MEDS: amLODIPine 10 MG Tablet PO SCH (09:13)
[2018-01-22] MEDS: Senna/Docusate Sodium 8.6/50 MG Tablet PO SCH ×2 (09:13→20:57)
[2018-01-22] MEDS: Lisinopril 20 MG Tablet PO SCH (09:13)
[2018-01-22] MEDS: Simethicone 125 MG Chew Tablet PO SCH ×3 (09:13→18:30)
--- NOTE | 2018-01-22 10:45 | XR ---
EXAM DATE: 01/22/2018 10:16 AM EST AGE/SEX: 62 years / Female INDICATIONS: Abdominal pain. CLINICAL DATA: This is the patient's initial encounter. Patient reports that signs and symptoms have been present for 2 days and indicates a pain score of 2/10. MEDICAL/SURGICAL HISTORY: None. Cholecystectomy. COMPARISON: [facility] [place], ABDOMEN 1V KUB, 01/21/2018. . FINDINGS: The abdominal bowel gas pattern is normal. No abnormal masses, calcifications, or organomegaly is se en. Mild degenerative changes are noted throughout the thoracolumbar spine. The patient is status pos t cholecystectomy. CONCLUSION: 1. No bowel obstruction, ileus or perforation. 2. Mild degenerative changes throughout the thoracolumbar spine. Electronically signed by: Elbert Olson MD Board Certified Radiologist 01/22/2018 10:44 AM EST
--- NOTE | 2018-01-22 10:52 | P.PNIM ---
Subjective Interval history: Pt reports that she had liquid stools several times yesterday Her abdomen is less painful but still with some LUQ discomfort. Yesterday the pt had two reported panic seizures, none since then. She received her Clonazepam and is doing well from that stand point. Physical Exam Vital signs: Last Vital Signs Temp 98.4 F 01/22/18 08:00 Pulse 65 01/22/18 08:00 Resp 18 01/22/18 08:00 BP 154/57 H 01/22/18 08:00 Pulse Ox 95 01/22/18 08:00 Narrative: GENERAL: NAD, AAOx3 CARDIO: Regular rate and rhythm. RESP: CTA bilaterally. ABD: +BS, soft, less LUQ tenderness, nondistended. No guarding or rebound EXT: No edema. No obvious deformities. Results Labs CBC & Chem 7: 01/23/18 06:09 01/23/18 06:09 Imaging Cholangiopancreatography MRI 01/20/18 00:00 CONCLUSION: 1. There is dilation of the common bile duct to the level of the pancreatic head. No obstructing lesion is seen at the level of the pancreatic head. There is gradual tapering which may reflect a benign stenosis. 2. Multiple pancreatic simple appearing cysts with a dominant cyst identified within the body of the pancreas. This dominant cyst demonstrates continuity with the nondilated main pancreatic duct consistent with a side branch IPMN. The smaller cysts do not clearly demonstrate continuity with the duct. There are no obstructing stones seen and no gating features within the pancreatic cysts. Abdomen X-Ray 01/21/18 00:00 CONCLUSION: New appearance of air dilated sigmoid colon centered within the mid pelvis which may represent interval development of a sigmoid volvulus. Abdomen X-Ray 01/22/18 00:00 CONCLUSION: 1. No bowel obstruction, ileus or perforation. 2. Mild degenerative changes throughout the thoracolumbar spine. Assessment and Plan Assessment (1) Elevated LFTs: Code(s): R94.5 - Abnormal results of liver function studies Status: Acute (2) Abdominal pain: Code(s): R10.9 - Unspecified abdominal pain Status: Acute Plan Constipation Abdominal pain Nausea/dry heaves Elevated LFTs, improving. - Pt is a 62 y/o female with HTN, Hyperlipidemia, panic seizures/pseudoseizures , and known pancreatic cysts. She presented initially to the ED at [facility] [place] with complaints of abdominal pain that began 2 days prior. This pain is located in the LUQ with radiation around the left ribs to the back. She initially had a few episodes of diarrhea but in the last two days has not moved her bowels. When the pain began she started taking Advil 3-4 tablets every 3-4 hours. In the ED on 01/19 her labs were essentially WNL. She had a CT Abd/ pelvis with IV contrast which noted moderate size retrocardiac hiatal hernia, multiple cystic structures within the pancreas , s/p cholecystectomy, and mild hepatic steatosis. Pt was discharged to home with a prescription for Protonix and Tramadol. The pain reportedly worsened last night and the tramadol didn't help. She presented back to the ED at [facility] [place] on 01/20/18 again with continued pain and nausea. - Her repeat labs on 01/20 noted an elevation in her LFTs with AST 111, ALT 129 , AlkPhos 172, and Total Bili remained WNL at 0.5. - Pt had a colonoscopy on 01/05/[address] Moralez which noted diverticulosis in the descending colon, a polyp in the descending colon, and hemorrhoids. She was scheduled for an EUS to further evaluate her known pancreatic cysts. She had a previous CT Abd/pelvis in 07/2017 which noted multiple cysts in the pancreas, which had increased in size slightly compared to previous CT scan in 2012 and felt to possibly be secondary to benign IPMN. - In the setting of her acutely elevated LFTs evaluated with MRCP - MRCP (01/20/18): 1. There is dilation of the common bile duct to the level of the pancreatic head. No obstructing lesion is seen at the level of the pancreatic head. There is gradual tapering which may reflect a benign stenosis. 2. Multiple pancreatic simple appearing cysts with a dominant cyst identified within the body of the pancreas. This dominant cyst demonstrates continuity with the nondilated main pancreatic duct consistent with a side branch IPMN. The smaller cysts do not clearly demonstrate continuity with the duct. There are no obstructing stones seen and no gating features within the pancreatic cysts. - Pts repeat LFTs are improving on 01/21. - At admission she had reported that she has not been passing gas and no BM in the last few days. Pt with a lot of gas noted in the LUQ on survey researcher film from CT scan - Pt was given Simethicone 125mg TID and Reglan 5mg Q8H IV, Dulcolax and Lactulose x 2 doses on 01/20. - On 01/21 pt has been passing more gas but no BM yet. - KUB (01/21/18) with continued gas distension and large amount of stool throughout the colon. - pt was given Mag Citrate on 01/21 and had several liquid BMs - Her repeat KUB (01/22) with less gas distributed more throughout the colon and small bowel and less stool burden - Pt with more bowel sounds today. - Appreciate Consult from GI. They felt that her hiatal hernia may be contributing and consulted General Surgery. Discussed the case with Dr. Gu on 01/21 and he felt that it was unlikely that her pain was related to the hiatal hernia and recommending feeding the pt as she was made NPO after MN last night. Will advance to full liquid diet for now and will continue efforts to relieve constipation and gas today. Should the pt not tolerate oral intake or clinically worsen then we will reconsult GS. Otherwise pt was requested to followup with GS outpt for evaluation of the hiatal hernia. - Encourage ambulation - Discussed minimizing narcotics - KUB in AM - Zofran PRN - Protonix 40mg PO daily - Monitor clinical status - Supportive care HTN - Improved on home meds - Clonidine PRN Pseudoseizures/Panic seizures - Clonazepam PRN Attending Attestation The exam, history, and the medical decision-making described in the above note were completed with the assistance of the mid-level provider. I reviewed and agree with the findings presented. I attest that I had a [id number] encounter with the patient on the same day, and personally performed and documented my assessment and findings in the medical record. Patient examined. Assessment and plan formulated with Rena Montgomery PA-C. I agree with the above. Progress Note: Quality VTE Deep Vein Thrombosis/Pulmonary Embolism Present on Admission: No _ (1) Abdominal pain Qualifiers: Abdominal location:
[2018-01-22] MEDS: Acetaminophen 325 MG Tablet PO PRN (18:28)
[2018-01-23] MEDS: Sod Chloride 0.9% Inj 1,000 ML IV.CONT SCH ×3 (03:21→18:27)
[2018-01-23 07:04] LABS: Baso % (Auto) 0.5 % (0.0-2.0); Eos # (Auto) 0.2 th/mm3 (0.0-0.4); Eos % (Auto) 4.4 % (0.0-4.0); Hematocrit 35.9 % (35.0-46.0); Hemoglobin 12.2 gm/dL (11.6-15.3); Lymph # (Auto) 1.3 th/mm3 (1.0-4.8); Lymph % (Auto) 24.2 % (9.0-44.0); Mean Corpuscular Hemoglobin 31.7 pg (27.0-34.0); Mean Corpuscular Volume 93.1 fL (80.0-100.0); Mean Platelet Volume 8.4 fL (7.0-11.0); Mono # (Auto) 0.5 th/mm3 (0.0-0.9); Mono % (Auto) 9.9 % (0.0-8.0); Neut # (Auto) 3.2 th/mm3 (1.8-7.7); Platelet Count 174 th/mm3 (150-450); Red Blood Count 3.85 mil/mm3 (4.00-5.30); Red Cell Distribution Width 12.2 % (11.6-17.2); White Blood Count 5.2 th/mm3 (4.0-11.0)
[2018-01-23 07:21] LABS: Albumin 3.5 g/dL (3.4-5.0); Anion Gap 6 meq/L (5-15); Aspartate Aminotransferase 22 U/L (15-37); Blood Urea Nitrogen 10 mg/dL (7-18); Calcium 8.3 mg/dL (8.5-10.1); Carbon Dioxide 30.2 meq/L (21.0-32.0); Chloride 104 meq/L (98-107); Glomerular Filtration Rate 89 mL/min (>89); Glucose,Random 100 mg/dL (74-106); Potassium 3.5 meq/L (3.5-5.1); Sodium 140 meq/L (136-145)
[2018-01-23 07:23] LABS: Alanine Aminotransferase 44 U/L (10-53)
[2018-01-23 07:25] LABS: Alkaline Phosphatase 108 U/L (45-117); Total Protein 6.4 g/dL (6.4-8.2)
[2018-01-23] MEDS: Acetaminophen 325 MG Tablet PO PRN ×4 (08:24→21:05)
[2018-01-23] MEDS: clonazePAM 0.5 MG Tablet PO PRN (08:26)
[2018-01-23] MEDS: Senna/Docusate Sodium 8.6/50 MG Tablet PO SCH (08:26)
[2018-01-23] MEDS: Simethicone 125 MG Chew Tablet PO SCH ×3 (08:26→18:28)
[2018-01-23] MEDS: amLODIPine 10 MG Tablet PO SCH (08:26)
[2018-01-23] MEDS: Lisinopril 20 MG Tablet PO SCH (08:26)
--- NOTE | 2018-01-23 08:48 | P.PNIM ---
Subjective Interval history: Pt still having abd pain in the LUQ. Overnight pt had a rash in the LUQ that wraps around her flank to the back, felt to be a shingles rash. Physical Exam Vital signs: Last Vital Signs Temp 98.3 F 01/23/18 05:07 Pulse 66 01/23/18 05:07 Resp 17 01/23/18 06:30 BP 171/79 H 01/23/18 05:07 Pulse Ox 94 L 01/23/18 05:07 Narrative: GENERAL: NAD, AAOx3 CARDIO: Regular rate and rhythm. RESP: CTA bilaterally. ABD: +BS, soft, less LUQ tenderness, nondistended. Vesicular rash appears to be along one dermatome in the LUQ that wraps around the left flank to the back but does not cross the midline of the back or the front. EXT: No edema. No obvious deformities. Results Labs CBC & Chem 7: 01/23/18 06:09 01/23/18 06:09 Imaging Cholangiopancreatography MRI 01/20/18 00:00 CONCLUSION: 1. There is dilation of the common bile duct to the level of the pancreatic head. No obstructing lesion is seen at the level of the pancreatic head. There is gradual tapering which may reflect a benign stenosis. 2. Multiple pancreatic simple appearing cysts with a dominant cyst identified within the body of the pancreas. This dominant cyst demonstrates continuity with the nondilated main pancreatic duct consistent with a side branch IPMN. The smaller cysts do not clearly demonstrate continuity with the duct. There are no obstructing stones seen and no gating features within the pancreatic cysts. Abdomen X-Ray 01/21/18 00:00 CONCLUSION: New appearance of air dilated sigmoid colon centered within the mid pelvis which may represent interval development of a sigmoid volvulus. Abdomen X-Ray 01/22/18 00:00 CONCLUSION: 1. No bowel obstruction, ileus or perforation. 2. Mild degenerative changes throughout the thoracolumbar spine. Assessment and Plan Assessment (1) Elevated LFTs: Code(s): R94.5 - Abnormal results of liver function studies Status: Acute (2) Abdominal pain: Code(s): R10.9 - Unspecified abdominal pain Status: Acute Plan Shingles Constipation Abdominal pain Nausea/dry heaves Elevated LFTs, resolved. - Pt is a 62 y/o female with HTN, Hyperlipidemia, panic seizures/pseudoseizures , and known pancreatic cysts. She presented initially to the ED at [facility] [place] on with complaints of abdominal pain that began 2 days prior. This pain is located in the LUQ with radiation around the left ribs to the back. She initially had a few episodes of diarrhea but in the last two days has not moved her bowels. When the pain began she started taking Advil 3-4 tablets every 3-4 hours. In the ED on 01/19 her labs were essentially WNL. She had a CT Abd/ pelvis with IV contrast which noted moderate size retrocardiac hiatal hernia, multiple cystic structures within the pancreas , s/p cholecystectomy, and mild hepatic steatosis. Pt was discharged to home with a prescription for Protonix and Tramadol. The pain reportedly worsened last night and the tramadol didn't help. She presented back to the ED at [facility] [place] on 01/20/18 again with continued pain and nausea. - Her repeat labs on 01/20 noted an elevation in her LFTs with AST 111, ALT 129 , AlkPhos 172, and Total Bili remained WNL at 0.5. - Pt had a colonoscopy on 01/05/[address] Moralez which noted diverticulosis in the descending colon, a polyp in the descending colon, and hemorrhoids. She was scheduled for an EUS to further evaluate her known pancreatic cysts. She had a previous CT Abd/pelvis in 07/2017 which noted multiple cysts in the pancreas, which had increased in size slightly compared to previous CT scan in 2012 and felt to possibly be secondary to benign IPMN. - In the setting of her acutely elevated LFTs at admission pt was evaluated with MRCP - MRCP (01/20/18): 1. There is dilation of the common bile duct to the level of the pancreatic head. No obstructing lesion is seen at the level of the pancreatic head. There is gradual tapering which may reflect a benign stenosis. 2. Multiple pancreatic simple appearing cysts with a dominant cyst identified within the body of the pancreas. This dominant cyst demonstrates continuity with the nondilated main pancreatic duct consistent with a side branch IPMN. The smaller cysts do not clearly demonstrate continuity with the duct. There are no obstructing stones seen and no gating features within the pancreatic cysts. - GI was consult at admission due to the abd pain and acutely elevated LFTs. They initially felt that her hiatal hernia may be contributing and consulted General Surgery. Discussed the case with Dr. Gu on 01/21 and he felt that it was unlikely that her pain was related to the hiatal hernia and recommending feeding the pt as she was made NPO after MN last night. Will advance to full liquid diet for now and will continue efforts to relieve constipation and gas today. Should the pt not tolerate oral intake or clinically worsen then we will reconsult GS. Otherwise pt was requested to followup with [facility] outpt for evaluation of the hiatal hernia. Her LFTs returned to WNL on 01/23. - At admission she had reported that she has not been passing gas and no BM in the last few days. Pt with a lot of gas noted in the LUQ on carrot grader inspector film from CT scan - Pt was given Simethicone 125mg TID and Reglan 5mg Q8H IV, Dulcolax and Lactulose x 2 doses on 01/20. - KUB (01/21/18) with continued gas distension and large amount of stool throughout the colon. - pt was given Mag Citrate on 01/21 and had several liquid BMs - Her repeat KUB (01/22) with less gas distributed more throughout the colon and small bowel and less stool burden - Pt was encouraged to ambulate and minimize narcotics - Pt had repeat KUB (01/23) with more gas and stool throughout the colon and in the LUQ. - On 01/23 pt was noted to have a vesicular rash in the LUQ that wraps around the flank but does not cross the midline. It appears to be consistent with shingles. Pt to be started on Valtrex 1,000mg BID. This rash was not present on admission and may be the cause for her persistent LUQ pain with the constipation and bloating contributing. She did not have any further BM on and passed minimal gas. We discussed with the pt and her that her pain may have been related to shingles all along but that the pain from shingles many times precedes the presentation of the rash. They would like to continue with a bowel clean out as the constipation and gas may also be contributing to her discomfort. We will order GoLytely to be given today. - Zofran PRN - pain control with Tylenol 650mg Q4H PRN and Percocet 5/325 Q8H PRN - Protonix 40mg PO daily - Monitor clinical status - Supportive care HTN - Improved on home meds - Clonidine PRN Pseudoseizures/Panic seizures - Clonazepam PRN Attending Attestation The exam, history, and the medical decision-making described in the above note were completed with the assistance of the mid-level provider. I reviewed and agree with the findings presented. I attest that I had a [id number] encounter with the patient on the same day, and personally performed and documented my assessment and findings in the medical record. Patient examined. Assessment and plan formulated with Rena Montgomery PA-C. I agree with the above. Progress Note: Quality VTE Deep Vein Thrombosis/Pulmonary Embolism Present on Admission: No _ (1) Abdominal pain Qualifiers: Abdominal location:
--- NOTE | 2018-01-23 10:27 | XR ---
EXAM DATE: 01/23/2018 10:07 AM EST AGE/SEX: 62 years / Female INDICATIONS: Distention. CLINICAL DATA: This is the patient's subsequent encounter. Patient reports that signs and symptoms h ave been present for 4 - 6 days and indicates a pain score of 0/10. MEDICAL/SURGICAL HISTORY: None. Cholecystectomy. COMPARISON: [facility] [place] 1V KUB, 01/22/2018. [facility] [place]BDOMEN 1V KUB, 01/21/2018. [facility] [place] ABDOMEN & PELVIS W CONTRAST, 01/19/2018. . FINDINGS: Single frontal supine view of the abdomen demonstrates air within small and large bowel in a nonobst ructive pattern. The transverse and ascending colon are mildly distended. Small bowel distention is d ecreased from yesterday's examination. No organomegaly or abnormal calcifications are identified. The re is no abnormal mass effect. Cholecystectomy clips overlie the right quadrant. There are degenerati ve changes of the lumbar spine. CONCLUSION: No acute abdominal abnormality is identified. There is mild distention of the transverse and descendi ng colon but there are no findings to indicate obstruction. Electronically signed by: Laith Zamora MD Board Certified Radiologist 01/23/2018 10:26 AM EST
[2018-01-23] MEDS ORDERED: PEG 3350/E-Lyte Soln 4000 ML Bottle PO ONE (12:00)
[2018-01-23] MEDS: valACYclovir 500 MG Tab PO SCH (12:36)
[2018-01-24] MEDS: valACYclovir 500 MG Tab PO SCH ×2 (00:05→14:04)
[2018-01-24] MEDS: Senna/Docusate Sodium 8.6/50 MG Tablet PO SCH ×2 (00:05→09:37)
[2018-01-24] MEDS: Acetaminophen 325 MG Tablet PO PRN ×4 (01:13→14:03)
[2018-01-24] MEDS: Sod Chloride 0.9% Inj 1,000 ML IV.CONT SCH ×2 (04:34→14:07)
[2018-01-24] MEDS: Simethicone 125 MG Chew Tablet PO SCH ×2 (09:37→14:04)
[2018-01-24] MEDS: amLODIPine 10 MG Tablet PO SCH (09:37)
[2018-01-24] MEDS: Lisinopril 20 MG Tablet PO SCH (09:37)
--- NOTE | 2018-01-24 12:26 | XR ---
EXAM DATE: 01/24/2018 12:18 PM EST AGE/SEX: 62 years / Female INDICATIONS: Abdominal pain and distention. CLINICAL DATA: This is the patient's subsequent encounter. Patient reports that signs and symptoms h ave been present for 2 days and indicates a pain score of 3/10. MEDICAL/SURGICAL HISTORY: None. Cholecystectomy. COMPARISON: [facility] [place], ABDOMEN 1V KUB, 01/23/2018. . FINDINGS: The abdominal bowel gas pattern is normal. No abnormal masses, calcifications, or organomegaly is s een. Mild degenerative changes are noted throughout the thoracolumbar spine. Degenerative changes are also noted involving the hip joints bilaterally. The patient is status post cholecystectomy. CONCLUSION: 1. No bowel obstruction, ileus or perforation. 2. Mild degenerative changes throughout the thoracolumbar spine. 3. Degenerative changes involving the hip joints bilaterally. Electronically signed by: Elbert Olson MD Board Certified Radiologist 01/24/2018 12:24 PM EST
--- NOTE | 2018-01-24 14:55 | P.DS ---
DS: Providers Date of admission: 01/20/18 08:29 Primary care physician: Awa Reis MD Consults: 01/20/18 09:04 Consult to Gastroenterology Routine Consulting Provider: Gio Mendez Reason for Consultation: Abdominal pain, nausea, elevated LFTs Notified:: Service Spoke with:: gina Date Notified:: 01/20/18 Time Notified:: 09:13 Ordering Provider: [place] Brief History from admission: Mrs. Aguayo is a 62 y/o female with HTN, Hyperlipidemia, panic seizures/pseudoseizures, and known pancreatic cysts. She presented initially to the ED at [facility] [place] on 01/19/18 with complaints of abdominal pain that began 2 days prior. This pain is located in the LUQ with radiation around the left ribs to the back. She initially had a few episodes of diarrhea but in the last two days has not moved her bowels. When the pain began she started taking Advil 3-4 tablets about twice per day over the last 2-3 days withtou relief of the pain. There were no reported fever or chills. In the ED on 01/19 her labs were essentially WNL. She had a CT Abd/pelvis with IV contrast which noted moderate size retrocardiac hiatal hernia, multiple cystic structures within the pancreas , s/p cholecystectomy, and mild hepatic steatosis. Pt was discharged to home with a prescription for Protonix and Tramadol. The pain reportedly worsened last night and the tramadol didn't help. She presented back to the ED at [facility] [place] on 01/20/18 again with continued pain and nausea. Her repeat labs on 01/20 noted an elevation in her LFTs with AST 111, ALT 129, AlkPhos 172, and Total Bili remained WNL at 0.5. Pt was given Percocet 10/650 and then Dilaudid IV in the ED. Her pain is currently stable but her reports that after the IV Dilaudid she started having itching all over. Pt is somewhat somnolent at the time of examination in the ED but did provide some information intermittently. She is nauseated and dry heaving during the examination. She states that she has not been passing gas and no BM in the last few days. Pt has had multiple abdominal surgeries previously. Her last abdominal surgery was for right oophorectomy and cyst removal in 07/2017. Of note, the pt had a colonoscopy on 01/05/[address] Moralez which noted diverticulosis in the descending colon, a polyp in the descending colon, and hemorrhoids. She was scheduled for an EUS to further evaluate her known pancreatic cysts. She had a previous CT Abd/pelvis in 07/2017 which noted multiple cysts in the pancreas, which had increased in size slightly compared to previous CT scan in 2012 and felt to possibly be secondary to benign IPMN. Past Medical Hx: HTN Hyperlipidemia Generalized anxiety disorder Panic seizures/Pseudoseizures Depression DDD Hiatal hernia Pancreatic cysts ?IPMN Hx of endometriosis Hx of ovarian cysts Past Surgical Hx: Laparoscopic EDILIA/right salpingo-oophorectomy on 07/25/17 Sai fundoplication with crucoplasty and lap arabella on 11/03/2008 Lumbar spine surgery Hysterectomy Family Hx: Sister with hx of breast cancer Father with hx of dementia Mother with hx of CVA Social Hx: No reported alcohol, tobacco or illicit drug use Pt is and lives locally with her . DS: Diagnosis Discharge Diagnosis (1) Elevated LFTs: Status: Acute (2) Abdominal pain: Status: Acute DS: Summary Shingles Constipation Abdominal pain Nausea/dry heaves Elevated LFTs, resolved. - Pt is a 62 y/o female with HTN, Hyperlipidemia, panic seizures/pseudoseizures , and known pancreatic cysts. She presented initially to the ED at [facility] [place] on with complaints of abdominal pain that began 2 days prior. This pain is located in the LUQ with radiation around the left ribs to the back. She initially had a few episodes of diarrhea but in the last two days has not moved her bowels. When the pain began she started taking Advil 3-4 tablets every 3-4 hours. In the ED on 01/19 her labs were essentially WNL. She had a CT Abd/ pelvis with IV contrast which noted moderate size retrocardiac hiatal hernia, multiple cystic structures within the pancreas , s/p cholecystectomy, and mild hepatic steatosis. Pt was discharged to home with a prescription for Protonix and Tramadol. The pain reportedly worsened last night and the tramadol didn't help. She presented back to the ED at [facility] [place] on 01/20/18 again with continued pain and nausea. - Her repeat labs on 01/20 noted an elevation in her LFTs with AST 111, ALT 129 , AlkPhos 172, and Total Bili remained WNL at 0.5. - Pt had a colonoscopy on 01/05/[address] Moralez which noted diverticulosis in the descending colon, a polyp in the descending colon, and hemorrhoids. She was scheduled for an EUS to further evaluate her known pancreatic cysts. She had a previous CT Abd/pelvis in 07/2017 which noted multiple cysts in the pancreas, which had increased in size slightly compared to previous CT scan in 2012 and felt to possibly be secondary to benign IPMN. - In the setting of her acutely elevated LFTs at admission pt was evaluated with MRCP - MRCP (01/20/18): 1. There is dilation of the common bile duct to the level of the pancreatic head. No obstructing lesion is seen at the level of the pancreatic head. There is gradual tapering which may reflect a benign stenosis. 2. Multiple pancreatic simple appearing cysts with a dominant cyst identified within the body of the pancreas. This dominant cyst demonstrates continuity with the nondilated main pancreatic duct consistent with a side branch IPMN. The smaller cysts do not clearly demonstrate continuity with the duct. There are no obstructing stones seen and no gating features within the pancreatic cysts. - GI was consult at admission due to the abd pain and acutely elevated LFTs. They initially felt that her hiatal hernia may be contributing and consulted General Surgery. Discussed the case with Dr. Gu on 01/21 and he felt that it was unlikely that her pain was related to the hiatal hernia and recommending feeding the pt as she was made NPO after MN last night. Will advance to full liquid diet for now and will continue efforts to relieve constipation and gas today. Should the pt not tolerate oral intake or clinically worsen then we will reconsult GS. Otherwise pt was requested to followup with [facility] outpt for evaluation of the hiatal hernia. Her LFTs returned to WNL on 01/23. - At admission she had reported that she has not been passing gas and no BM in the last few days. Pt with a lot of gas noted in the LUQ on bulk sugar handler film from CT scan - Pt was given Simethicone 125mg TID and Reglan 5mg Q8H IV, Dulcolax and Lactulose x 2 doses on 01/20. - KUB (01/21/18) with continued gas distension and large amount of stool throughout the colon. - pt was given Mag Citrate on 01/21 and had several liquid BMs - Her repeat KUB (01/22) with less gas distributed more throughout the colon and small bowel and less stool burden - Pt was encouraged to ambulate and minimize narcotics - Pt had repeat KUB (01/23) with more gas and stool throughout the colon and in the LUQ. - Repeat KUB (01/24) - appears to be improving 1. No bowel obstruction, ileus or perforation. - DC home with continued daily Miralax - On 01/23 pt was noted to have a vesicular rash in the LUQ that wraps around the flank but does not cross the midline. It appears to be consistent with shingles. Pt to be started on Valtrex 1,000mg BID. This rash was not present on admission and may be the cause for her persistent LUQ pain with the constipation and bloating contributing. She did not have any further BM on and passed minimal gas. We discussed with the pt and her that her pain may have been related to shingles all along but that the pain from shingles many times precedes the presentation of the rash. They would like to continue with a bowel clean out as the constipation and gas may also be contributing to her discomfort. We will order GoLytely to be given. - Zofran PRN - pain control with Tylenol 650mg Q4H PRN and Percocet 5/325 Q8H PRN - Protonix 40mg PO daily - Monitor clinical status - Supportive care HTN - Improved on home meds - BP elevated today nursing has been checking BP on pts leg. Nursing to recheck BP with proper fitting cuff on arm. - Clonidine PRN Pseudoseizures/Panic seizures - Clonazepam PRN Attending Attestation: The exam, history, and the medical decision-making described in the above note were completed with the assistance of the mid-level provider. I reviewed and agree with the findings presented. I attest that I had a [id number] encounter with the patient on the same day, and personally performed and documented my assessment and findings in the medical record. Patient examined. Assessment and plan formulated with Josselyn Johnson PA-C. I agree with the above. Time Spent with Patient Total time spent providing and/or coordinating discharge services: Quality: VTE Deep Vein Thrombosis/Pulmonary Embolism Present on Admission: No Results Impressions ITS Impressions Cholangiopancreatography MRI 01/20/18 00:00 CONCLUSION: 1. There is dilation of the common bile duct to the level of the pancreatic head. No obstructing lesion is seen at the level of the pancreatic head. There is gradual tapering which may reflect a benign stenosis. 2. Multiple pancreatic simple appearing cysts with a dominant cyst identified within the body of the pancreas. This dominant cyst demonstrates continuity with the nondilated main pancreatic duct consistent with a side branch IPMN. The smaller cysts do not clearly demonstrate continuity with the duct. There are no obstructing stones seen and no gating features within the pancreatic cysts. Abdomen X-Ray 01/24/18 00:00 CONCLUSION: 1. No bowel obstruction, ileus or perforation. 2. Mild degenerative changes throughout the thoracolumbar spine. 3. Degenerative changes involving the hip joints bilaterally. Discharge Plan Discharge Disposition Patient Disposition: 01 Discharge Home Discharge Condition Condition: Stable Discharge Order Discharge Orders: Discharge Order (Routine); Ordered 01/24/18 Ordered By: Josselyn Johnson Discharge Details Anticipated Discharge Date: 01/24/18 Physicians Team Primary Care Provider: Awa Reis Attending Provider: Live Hidalgo Other Providers: Gio Mendez Rxs /Orders / Referrals /Forms Prescriptions: New valacyclovir [Valtrex] 500 mg Tablet 1,000 mg PO Q12H 7 Days Qty: 28 RF: 0 polyethylene glycol 3350 [Miralax] 17 gram powder in packet 17 g PO DAILY Qty: 14 RF: 0 amitriptyline 25 mg tablet 25 mg PO DAILY 30 Days Qty: 30 RF: 0 capsaicin [Zostrix] 0.033 % cream 1 applic TOPICAL BID Qty: 56.6 RF: 0 tramadol [Ultram] 50 mg tablet 25 mg PO Q6H PRN (Reason: pain) Qty: 14 RF: 0 Continue atorvastatin 20 mg Tablet 20 mg PO QPM RF: 0 clonazepam 0.5 mg Tablet 0.5 mg PO TID RF: 0 amlodipine 10 mg Tablet 10 mg PO DAILY RF: 0 lisinopril 40 mg Tablet 40 mg PO DAILY RF: 0 escitalopram oxalate 20 mg Tablet 20 mg PO DAILY RF: 0 tramadol 50 mg tablet 50 mg PO Q6H PRN (Reason: pain) Qty: 12 RF: 0 pantoprazole [Protonix] 40 mg tablet,delayed release (DR/EC) 40 mg PO DAILY Qty: 30 RF: 0 Referrals: Awa Reis MD [Primary Care Provider] - See Instructions (follow up in 1 week) Discharge Instructions Patient Printed Instructions: Amitriptyline (By mouth), Tramadol (By mouth), Valacyclovir (By mouth), Capsaicin (On the skin), Shingles (DC), Acute Abdominal Pain (DC) Additional Instructions: Do not take more then 3000mg of Acetaminophen (Tylenol) Follow up as directed Prescriptions given to family prior to discharge Status ED Status: Left Department Discharge Information Discharge Date/Time: 01/24/18 17:29
== END 2018-01-24 17:29 | disposition home or self-care (01) ==
LOC: NEDA 05:31 → NEPE 05:31 → N06 11:48
PROVIDERS: ADMIT Hospitalist; ATTEND Hospitalist
DX: R11.0 Nausea; Z88.5 Allergy status to narcotic agent; K29.70 Gastritis, unspecified, without bleeding; E78.00 Pure hypercholesterolemia, unspecified; F44.5 Conversion disorder with seizures or convulsions; K59.00 Constipation, unspecified; Z90.721 Acquired absence of ovaries, unilateral; Z90.49 Acquired absence of other specified parts of digestive tract; D12.4 Benign neoplasm of descending colon; E78.5 Hyperlipidemia, unspecified; I10 Essential (primary) hypertension; Z90.710 Acquired absence of both cervix and uterus; R19.7 Diarrhea, unspecified; R94.5 Abnormal results of liver function studies; F41.1 Generalized anxiety disorder; Z79.899 Other long term (current) drug therapy; F32.9 Major depressive disorder, single episode, unspecified; K86.2 Cyst of pancreas; K57.30 Diverticulosis of large intestine without perforation or abscess without bleeding; K64.9 Unspecified hemorrhoids; Z80.3 Family history of malignant neoplasm of breast; R10.13 Epigastric pain; K44.9 Diaphragmatic hernia without obstruction or gangrene; K76.0 Fatty (change of) liver, not elsewhere classified; Z88.6 Allergy status to analgesic agent; B02.9 Zoster without complications